=== PATIENT | female | born 1990 | race Caucasian/White ===

== ENCOUNTER 2018-02-18 22:38 | Emergency (ER) | payer OTHER ==
[~2018-02-18] VITALS: Ht 170.2 cm; Wt 123.4 kg
[2018-02-18] MEDS ORDERED: PNEU16DI2 (23:14)
[2018-02-18] MEDS ORDERED: TRAMADOL HCL50 MG (23:14)
[2018-02-19] MEDS ORDERED: ULTRACET PO (20:14)
[2018-02-20] MEDS ORDERED: CIPRO500 MG PO (08:28)
== END 2018-02-19 21:22 | disposition home or self-care (01) ==
LOC: ER 22:38
DX: N94.6 Dysmenorrhea, unspecified (principal); D72.829 Elevated white blood cell count, unspecified; R10.2 Pelvic and perineal pain

== ENCOUNTER 2018-02-20 01:33 | Emergency (ER) | payer OTHER ==
[~2018-02-20] VITALS: Ht 170.2 cm; Wt 123.4 kg
[~2018-02-20 01:33] MED LIST: PNEU16DI2; TRAMADOL HCL50 MG; ULTRACET PO
[2018-02-20] MEDS ORDERED: CIPRO500 MG PO (08:28)
== END 2018-02-20 19:39 | disposition home or self-care (01) ==
LOC: ER 01:33
DX: R10.2 Pelvic and perineal pain (principal)